=== PATIENT | male | born 1960 | race Caucasian/White ===

== ENCOUNTER 2019-12-01 19:35 | Inpatient (IN) ==
[2019-12-01] MEDS ORDERED: ONDANSETRON 4 MG/2 ML VIAL IV STA (19:58)
[2019-12-01] MEDS ORDERED: SODIUM CHLORIDE 0.9% 1,000 ML IV STA ×2 (19:58→22:11)
[2019-12-01] MEDS ORDERED: ONDANSETRON 4 MG/2 ML VIAL ONE (20:01)
[2019-12-01 21:10] LABS: Basophils # 0.1 10*3/uL (0.0-0.2); Basophils % 0.5 % (0.0-0.8); Eosinophils # 0.1 10*3/uL (0.0-0.87); Eosinophils % 0.4 % (0.00-10.9); Hematocrit 38.2 VOL% (42.0-52.0); Immature Granulocytes % 1.7 %; Immature Granulocytes Absolute 0.44 #; Lymphocytes # 4.3 10*3/uL (1.4-4.0); Lymphocytes % 16.5 % (21.2-54.2); Mean Corpuscular HGB Conc 31.4 GM/DL (32-36); Mean Corpuscular Volume 97.7 FL (87-102); Mean Platelet Volume 9.2 FL (9.6-12.0); Monocytes % 5.3 % (1.7-12.7); Neutrophils % 75.6 % (38.7-73.9); Platelet Count 364 T/CUMM (130-400); Red Blood Count 3.91 MC/CUMM (3.8-5.5); Red Cell Distribution Width 17.8 % (9.3-17.3); White Blood Count 25.9 T/CUMM (4-12)
[2019-12-01 21:30] LABS: Alanine Aminotransferase 19 U/L (16-61); Albumin 2.5 G/DL (3.4-5.0); Alkaline Phosphatase 97 U/L (45-117); Aspartate Amino Transferase 14 U/L (0-37); Blood Urea Nitrogen 23 MG/DL (7-18); Calcium 8.9 MG/DL (8.5-10.1); Estimated Glom Filtration Rate 71 ML/MIN; Glucose 98 MG/DL (74-106); Osmolality,Calculated 278.7 MOS/KG (273-304); Total Protein 7.5 G/DL (6.4-8.3)
[2019-12-01 21:46] LABS: Band Neutrophils 1 % (0-10); Eosinophils 1 % (0-10); Lymphocytes 20 % (20-55); Myelocytes 1 %; Segmented Neutrophils 70 % (50-85); Total Cells Counted 100
[2019-12-01 21:47] LABS: Macrocytosis 1+
[2019-12-01 21:48] LABS: Hypochromasia 1+; Platelet Estimate Normal; Toxic Granulation 1+
[2019-12-01] MEDS ORDERED: PIPERACILLIN/TAZOBACTAM 3,375 MG in SODIUM CHLORIDE 0.9% 100 ML IV STA (21:48)
[2019-12-01 21:49] LABS: Polychromasia Few; Reactive Lymphocytes 1+
[2019-12-01 22:44] LABS: Amorphous Crystals,Urine Occasional /HPF (Few); Bacteria,Urine Occasional /HPF (Few); Bilirubin,Urine Negative (Negative); Blood, Urine Negative (Negative); Glucose,Urine (UA) Negative (Negative); Hyaline Casts,Urine 28 /LPF (0-3); Ketones,Urine Negative (Negative); Mucus,Urine Occasional /LPF (Occasional); Nitrite,Urine Negative (Negative); Protein,Urine 30 MG/DL; RBC,Urine 5 /HPF (0-4); Squamous Epithelial Cell,Urine Occasional /HPF (0-10); Urine Appearance CLOUDY (Clear); Urine Color Amber (Yellow); Urine Specific Gravity 1.019 (1.001-1.035); Urine Urobilinogen < 2.0 EU/DL (0.2-1.0); WBC,Urine 28 /HPF (0-6)
[2019-12-01] MEDS ORDERED: VANCOMYCIN INJ 1,000 MG in SODIUM CHLORIDE 0.9% 250 ML IV STA (23:57)
[2019-12-02] MEDS ORDERED: VANCOMYCIN INJ 1,000 MG in SODIUM CHLORIDE 0.9% 250 ML IV STA (00:04)
[2019-12-02] MEDS ORDERED: GLUCAGON 1 MG VIAL IM PRN (00:20)
[2019-12-02] MEDS ORDERED: ONDANSETRON 4 MG/2 ML VIAL IV PRN (00:20)
[2019-12-02] MEDS ORDERED: DEXTROSE 50% 25 GM/50 ML VIAL IV PRN (00:20)
[2019-12-02] MEDS: ALBUTEROL/IPRATROPIUM 3 ML NEB RESP TX SCH ×4 (01:02→19:11)
[2019-12-02] MEDS: SODIUM CHLORIDE 0.9% 1,000 ML IV SCH ×2 (03:04→10:18)
[2019-12-02] MEDS ORDERED: SODIUM CHLORIDE 0.9% 1,000 ML IV ONE (03:09)
[2019-12-02 04:18] LABS: Basophils # 0.1 10*3/uL (0.0-0.2); Basophils % 0.3 % (0.0-0.8); Eosinophils # 0.1 10*3/uL (0.0-0.87); Eosinophils % 0.3 % (0.00-10.9); Hematocrit 30.6 VOL% (42.0-52.0); Hemoglobin 9.7 GM/DL (14.0-18.0); Immature Granulocytes % 1.5 %; Immature Granulocytes Absolute 0.34 #; Lymphocytes # 3.7 10*3/uL (1.4-4.0); Mean Corpuscular HGB Conc 31.7 GM/DL (32-36); Mean Corpuscular Volume 96.8 FL (87-102); Mean Platelet Volume 8.8 FL (9.6-12.0); Monocytes % 6.8 % (1.7-12.7); Neutrophils % 75.1 % (38.7-73.9); Platelet Count 283 T/CUMM (130-400); Red Blood Count 3.16 MC/CUMM (3.8-5.5); Red Cell Distribution Width 17.6 % (9.3-17.3); White Blood Count 23.1 T/CUMM (4-12)
[2019-12-02 04:40] LABS: Osmolality,Calculated 286.1 MOS/KG (273-304)
[2019-12-02 04:58] LABS: Band Neutrophils 1 % (0-10); Lymphocytes 11 % (20-55); Segmented Neutrophils 84 % (50-85); Total Cells Counted 100
[2019-12-02 04:59] LABS: Platelet Estimate Normal
[2019-12-02 05:15] LABS: Spherocytes Few
[2019-12-02 05:16] LABS: Polychromasia Slight
[2019-12-02] MEDS: CEFEPIME 2,000 MG in SODIUM CHLORIDE 0.9% 100 ML IV SCH ×3 (06:25→21:44)
[2019-12-02] MEDS ORDERED: ALBUMIN 5% 25 GM in PREMIX 1 EACH IV ONE (06:26)
[2019-12-02 06:57] LABS: Amorphous Crystals,Urine Occasional /HPF (Few); Bacteria,Urine Occasional /HPF (Few); Bilirubin,Urine Negative (Negative); Blood, Urine Negative (Negative); Glucose,Urine (UA) Negative (Negative); Hyaline Casts,Urine 3 /LPF (0-3); Ketones,Urine Negative (Negative); Nitrite,Urine Negative (Negative); Protein,Urine 30 MG/DL; RBC,Urine 2 /HPF (0-4); Squamous Epithelial Cell,Urine Occasional /HPF (0-10); Urine Appearance CLOUDY (Clear); Urine Color Yellow (Yellow); Urine Specific Gravity 1.016 (1.001-1.035); Urine Urobilinogen < 2.0 EU/DL (0.2-1.0); WBC,Urine 1 /HPF (0-6)
[2019-12-02] MEDS: ENOXAPARIN 40 MG/0.4 ML SYRINGE SUBCUT SCH (08:26)
[2019-12-02] MEDS: PANTOPRAZOLE 40 MG VIAL IV SCH (08:27)
[2019-12-02] MEDS: NOREPINEPHRINE 8 MG in SODIUM CHLORIDE 0.9% 242 ML IV SCH (09:42)
[2019-12-02] MEDS: LACTATED RINGERS 1,000 ML IV SCH ×2 (10:00→18:20)
[2019-12-02] MEDS: HYDROCORTISONE 100 MG VIAL IV SCH ×3 (10:00→21:44)
[2019-12-02] MEDS: METOCLOPRAMIDE 10 MG/10 ML UDCUP PEG SCH ×2 (13:11→19:34)
[2019-12-02] MEDS: MENTHOL/ZINC OXIDE OINT 71 GM JAR TOP SCH ×2 (15:16→21:44)
[2019-12-02] MEDS: VANCOMYCIN INJ 1,250 MG in SODIUM CHLORIDE 0.9% 250 ML IV SCH (16:20)
[2019-12-03] MEDS: METOCLOPRAMIDE 10 MG/10 ML UDCUP PEG SCH ×5 (00:18→23:43)
[2019-12-03] MEDS: ALBUTEROL/IPRATROPIUM 3 ML NEB RESP TX SCH ×4 (01:42→19:50)
[2019-12-03] MEDS: VANCOMYCIN INJ 1,250 MG in SODIUM CHLORIDE 0.9% 250 ML IV SCH (02:49)
[2019-12-03] MEDS: LACTATED RINGERS 1,000 ML IV SCH ×3 (02:49→18:25)
[2019-12-03] MEDS: HYDROCORTISONE 100 MG VIAL IV SCH ×4 (04:15→21:58)
[2019-12-03 05:50] LABS: Basophils % 0.2 % (0.0-0.8); Hematocrit 28.9 VOL% (42.0-52.0); Hemoglobin 9.1 GM/DL (14.0-18.0); Immature Granulocytes % 3.2 %; Immature Granulocytes Absolute 0.34 #; Lymphocytes # 1.2 10*3/uL (1.4-4.0); Lymphocytes % 10.9 % (21.2-54.2); Mean Corpuscular HGB Conc 31.5 GM/DL (32-36); Mean Corpuscular Volume 97.3 FL (87-102); Mean Platelet Volume 9.3 FL (9.6-12.0); Monocytes % 3.7 % (1.7-12.7); Platelet Count 271 T/CUMM (130-400); Red Blood Count 2.97 MC/CUMM (3.8-5.5); Red Cell Distribution Width 17.4 % (9.3-17.3); White Blood Count 10.7 T/CUMM (4-12)
[2019-12-03 06:14] LABS: Calcium 8.2 MG/DL (8.5-10.1); Osmolality,Calculated 295.7 MOS/KG (273-304)
[2019-12-03] MEDS: CEFEPIME 2,000 MG in SODIUM CHLORIDE 0.9% 100 ML IV SCH ×3 (06:28→21:59)
[2019-12-03] MEDS: PANTOPRAZOLE 40 MG VIAL IV SCH (08:42)
[2019-12-03] MEDS: ENOXAPARIN 40 MG/0.4 ML SYRINGE SUBCUT SCH (08:42)
[2019-12-03] MEDS: MENTHOL/ZINC OXIDE OINT 71 GM JAR TOP SCH ×2 (08:50→21:59)
[2019-12-03] MEDS: MAGNESIUM SULF RIDER 4 GM in PREMIX 1 EACH IV SCH ×3 (09:38→18:59)
[2019-12-03] MEDS: NOREPINEPHRINE 8 MG in SODIUM CHLORIDE 0.9% 242 ML IV SCH (09:56)
[2019-12-03] MEDS: traMADol 50 MG TABLET PO PRN (19:10)
[2019-12-04] MEDS: ALBUTEROL/IPRATROPIUM 3 ML NEB RESP TX SCH ×4 (00:02→19:50)
[2019-12-04] MEDS: traMADol 50 MG TABLET PO PRN ×3 (00:45→23:28)
[2019-12-04] MEDS: LACTATED RINGERS 1,000 ML IV SCH ×3 (04:58→18:40)
[2019-12-04] MEDS: METOCLOPRAMIDE 10 MG/10 ML UDCUP PEG SCH ×3 (05:06→18:41)
[2019-12-04] MEDS: CEFEPIME 2,000 MG in SODIUM CHLORIDE 0.9% 100 ML IV SCH ×3 (05:06→21:06)
[2019-12-04 05:41] LABS: Basophils # 0.1 10*3/uL (0.0-0.2); Basophils % 0.4 % (0.0-0.8); Eosinophils % 0.1 % (0.00-10.9); Hematocrit 25.5 VOL% (42.0-52.0); Hemoglobin 8.2 GM/DL (14.0-18.0); Immature Granulocytes % 5.4 %; Immature Granulocytes Absolute 0.61 #; Lymphocytes # 1.5 10*3/uL (1.4-4.0); Lymphocytes % 13.7 % (21.2-54.2); Mean Corpuscular HGB Conc 32.2 GM/DL (32-36); Mean Corpuscular Volume 96.2 FL (87-102); Mean Platelet Volume 9.2 FL (9.6-12.0); Monocytes % 7.2 % (1.7-12.7); Neutrophils % 73.2 % (38.7-73.9); Platelet Count 275 T/CUMM (130-400); Red Blood Count 2.65 MC/CUMM (3.8-5.5); Red Cell Distribution Width 17.1 % (9.3-17.3); White Blood Count 11.3 T/CUMM (4-12)
[2019-12-04 06:00] LABS: Calcium 8.3 MG/DL (8.5-10.1); Osmolality,Calculated 283.5 MOS/KG (273-304)
[2019-12-04 06:10] LABS: Band Neutrophils 2 % (0-10); Hypochromasia 1+; Lymphocytes 10 % (20-55); Microcytosis Slight; Platelet Estimate Adequate; Segmented Neutrophils 80 % (50-85); Total Cells Counted 100
[2019-12-04] MEDS: MENTHOL/ZINC OXIDE OINT 71 GM JAR TOP SCH ×2 (08:32→23:28)
[2019-12-04] MEDS: ENOXAPARIN 40 MG/0.4 ML SYRINGE SUBCUT SCH (08:32)
[2019-12-04] MEDS: PANTOPRAZOLE 40 MG VIAL IV SCH (08:36)
[2019-12-04] MEDS: HYDROCORTISONE 100 MG VIAL IV SCH ×2 (08:37→20:40)
[2019-12-04] MEDS: POTASSIUM CHLORIDE 20 MEQ/15 ML UDCUP PER TUBE SCH ×3 (11:00→18:20)
[2019-12-04] MEDS: NOREPINEPHRINE 8 MG in SODIUM CHLORIDE 0.9% 242 ML IV SCH (14:10)
[2019-12-05] MEDS: ALBUTEROL/IPRATROPIUM 3 ML NEB RESP TX SCH ×4 (00:15→19:30)
[2019-12-05] MEDS: LACTATED RINGERS 1,000 ML IV SCH ×3 (00:31→13:50)
[2019-12-05] MEDS: METOCLOPRAMIDE 10 MG/10 ML UDCUP PEG SCH ×5 (01:10→23:09)
[2019-12-05 05:36] LABS: Basophils % 0.4 % (0.0-0.8); Eosinophils # 0.1 10*3/uL (0.0-0.87); Eosinophils % 0.7 % (0.00-10.9); Hematocrit 26.1 VOL% (42.0-52.0); Hemoglobin 8.5 GM/DL (14.0-18.0); Immature Granulocytes % 2.5 %; Immature Granulocytes Absolute 0.26 #; Lymphocytes # 2.8 10*3/uL (1.4-4.0); Lymphocytes % 26.8 % (21.2-54.2); Mean Corpuscular HGB Conc 32.6 GM/DL (32-36); Mean Corpuscular Volume 93.2 FL (87-102); Mean Platelet Volume 9.3 FL (9.6-12.0); Monocytes % 10.8 % (1.7-12.7); Neutrophils % 58.8 % (38.7-73.9); Platelet Count 308 T/CUMM (130-400); Red Cell Distribution Width 16.6 % (9.3-17.3); White Blood Count 10.5 T/CUMM (4-12)
[2019-12-05 05:49] LABS: Calcium 7.9 MG/DL (8.5-10.1); Osmolality,Calculated 281.3 MOS/KG (273-304)
[2019-12-05] MEDS: traMADol 50 MG TABLET PO PRN ×2 (06:13→21:11)
[2019-12-05] MEDS: CEFEPIME 2,000 MG in SODIUM CHLORIDE 0.9% 100 ML IV SCH ×2 (06:16→15:01)
[2019-12-05] MEDS ORDERED: hydrALAZINE 25 MG TABLET PEG PRN (07:31)
[2019-12-05] MEDS ORDERED: POTASSIUM CHLORIDE 20 MEQ/15 ML UDCUP PO ONE ×2 (07:32→08:00)
[2019-12-05] MEDS ORDERED: MAGNESIUM SULF RIDER 2 GM in PREMIX 1 EACH IV ONE (07:33)
[2019-12-05] MEDS: SIMETHICONE CHEW 80 MG TABLET PO SCH ×3 (08:19→21:11)
[2019-12-05] MEDS: PANTOPRAZOLE 40 MG TABLET PO SCH (08:27)
[2019-12-05] MEDS: MENTHOL/ZINC OXIDE OINT 71 GM JAR TOP SCH ×2 (08:28→21:13)
[2019-12-05] MEDS: predniSONE 10 MG TABLET PEG SCH ×2 (08:28→21:12)
[2019-12-05] MEDS: ENOXAPARIN 40 MG/0.4 ML SYRINGE SUBCUT SCH (08:28)
[2019-12-05] MEDS: METOPROLOL TARTRATE 50 MG TABLET PEG SCH ×2 (08:28→21:12)
[2019-12-05] MEDS: SERTRALINE 50 MG TABLET PEG SCH (08:29)
[2019-12-05] MEDS: NOREPINEPHRINE 8 MG in SODIUM CHLORIDE 0.9% 242 ML IV SCH (08:30)
[2019-12-05] MEDS ORDERED: predniSONE 5 MG TABLET PEG SCH (09:00)
[2019-12-05] MEDS: INSULIN LISPRO 100 UNIT/ML SUBCUT SCH ×2 (13:49→17:55)
[2019-12-05] MEDS: POTASSIUM CHLORIDE RIDER 10 MEQ in PREMIX 1 EACH IV PRN ×4 (14:54→22:55)
[2019-12-05] MEDS: CEFDINIR 300 MG CAPSULE PO SCH (21:11)
[2019-12-06] MEDS: ALBUTEROL/IPRATROPIUM 3 ML NEB RESP TX SCH ×4 (00:58→19:21)
[2019-12-06 02:05] LABS: Basophils # 0.1 10*3/uL (0.0-0.2); Basophils % 0.5 % (0.0-0.8); Eosinophils # 0.2 10*3/uL (0.0-0.87); Eosinophils % 1.6 % (0.00-10.9); Hematocrit 30.5 VOL% (42.0-52.0); Immature Granulocytes Absolute 0.25 #; Lymphocytes # 2.9 10*3/uL (1.4-4.0); Lymphocytes % 23.3 % (21.2-54.2); Mean Corpuscular HGB Conc 32.8 GM/DL (32-36); Mean Corpuscular Volume 92.1 FL (87-102); Mean Platelet Volume 9.1 FL (9.6-12.0); Monocytes % 8.9 % (1.7-12.7); Neutrophils % 63.7 % (38.7-73.9); Platelet Count 291 T/CUMM (130-400); Red Blood Count 3.31 MC/CUMM (3.8-5.5); Red Cell Distribution Width 16.8 % (9.3-17.3); White Blood Count 12.5 T/CUMM (4-12)
[2019-12-06 02:23] LABS: Calcium 8.2 MG/DL (8.5-10.1)
[2019-12-06] MEDS: INSULIN LISPRO 100 UNIT/ML SUBCUT SCH ×4 (02:40→17:55)
[2019-12-06] MEDS: POTASSIUM CHLORIDE RIDER 10 MEQ in PREMIX 1 EACH IV PRN ×2 (05:07→06:40)
[2019-12-06] MEDS: METOCLOPRAMIDE 10 MG/10 ML UDCUP PEG SCH ×3 (05:58→17:55)
[2019-12-06] MEDS ORDERED: TUBERCULIN SKIN TEST 0.1 ML SYRINGE INTRADERM ONE (08:51)
[2019-12-06] MEDS: MENTHOL/ZINC OXIDE OINT 71 GM JAR TOP SCH ×2 (10:07→20:49)
[2019-12-06] MEDS: METOPROLOL TARTRATE 50 MG TABLET PEG SCH ×2 (10:07→20:55)
[2019-12-06] MEDS: CEFDINIR 300 MG CAPSULE PO SCH ×2 (10:07→20:50)
[2019-12-06] MEDS: PANTOPRAZOLE 40 MG TABLET PO SCH (10:07)
[2019-12-06] MEDS: ENOXAPARIN 40 MG/0.4 ML SYRINGE SUBCUT SCH (10:07)
[2019-12-06] MEDS: SERTRALINE 50 MG TABLET PEG SCH (10:07)
[2019-12-06] MEDS: SIMETHICONE CHEW 80 MG TABLET PO SCH ×3 (10:07→20:50)
[2019-12-06] MEDS: predniSONE 10 MG TABLET PEG SCH ×2 (10:07→20:50)
[2019-12-07] MEDS: INSULIN LISPRO 100 UNIT/ML SUBCUT SCH ×4 (00:02→17:53)
[2019-12-07] MEDS: METOCLOPRAMIDE 10 MG/10 ML UDCUP PEG SCH ×4 (00:17→17:43)
[2019-12-07] MEDS: ALBUTEROL/IPRATROPIUM 3 ML NEB RESP TX SCH ×4 (00:20→19:44)
[2019-12-07] MEDS: ENOXAPARIN 40 MG/0.4 ML SYRINGE SUBCUT SCH (10:23)
[2019-12-07] MEDS: PANTOPRAZOLE 40 MG TABLET PO SCH (10:24)
[2019-12-07] MEDS: CEFDINIR 300 MG CAPSULE PO SCH ×2 (10:24→20:54)
[2019-12-07] MEDS: SIMETHICONE CHEW 80 MG TABLET PO SCH ×3 (10:24→20:54)
[2019-12-07] MEDS: SERTRALINE 50 MG TABLET PEG SCH (10:24)
[2019-12-07] MEDS: predniSONE 10 MG TABLET PEG SCH ×2 (10:24→20:54)
[2019-12-07] MEDS: METOPROLOL TARTRATE 50 MG TABLET PEG SCH ×2 (10:24→20:54)
[2019-12-07] MEDS: MENTHOL/ZINC OXIDE OINT 71 GM JAR TOP SCH ×2 (10:25→20:54)
[2019-12-07] MEDS ORDERED: ALUM/MAG/SIMETH/LIDO VISC 1:1 30 ML BOTTLE PO ONE (11:42)
[2019-12-07] MEDS ORDERED: MORPHINE 4 MG/1 ML VIAL IV ONE (11:43)
[2019-12-07 13:17] LABS: Troponin I < 0.015 NG/ML (0.00-0.045)
[2019-12-08] MEDS: METOCLOPRAMIDE 10 MG/10 ML UDCUP PEG SCH ×4 (00:19→17:48)
[2019-12-08] MEDS: INSULIN LISPRO 100 UNIT/ML SUBCUT SCH ×4 (00:19→17:48)
[2019-12-08] MEDS: ALBUTEROL/IPRATROPIUM 3 ML NEB RESP TX SCH ×4 (00:43→20:20)
[2019-12-08] MEDS: METOPROLOL TARTRATE 50 MG TABLET PEG SCH ×2 (08:40→20:49)
[2019-12-08] MEDS: predniSONE 10 MG TABLET PEG SCH ×2 (08:40→20:49)
[2019-12-08] MEDS: SERTRALINE 50 MG TABLET PEG SCH (08:40)
[2019-12-08] MEDS: ENOXAPARIN 40 MG/0.4 ML SYRINGE SUBCUT SCH (08:40)
[2019-12-08] MEDS: CEFDINIR 300 MG CAPSULE PO SCH (08:40)
[2019-12-08] MEDS: MENTHOL/ZINC OXIDE OINT 71 GM JAR TOP SCH ×2 (08:40→20:49)
[2019-12-08] MEDS: PANTOPRAZOLE 40 MG TABLET PO SCH (08:40)
[2019-12-08] MEDS: SIMETHICONE CHEW 80 MG TABLET PO SCH ×3 (08:40→20:49)
[2019-12-08] MEDS: traMADol 50 MG TABLET PO PRN (08:51)
[2019-12-09] MEDS: INSULIN LISPRO 100 UNIT/ML SUBCUT SCH ×4 (00:01→18:43)
[2019-12-09] MEDS: METOCLOPRAMIDE 10 MG/10 ML UDCUP PEG SCH ×4 (00:01→18:20)
[2019-12-09] MEDS: ALBUTEROL/IPRATROPIUM 3 ML NEB RESP TX SCH ×4 (01:16→19:43)
[2019-12-09 06:12] LABS: Basophils # 0.1 10*3/uL (0.0-0.2); Basophils % 0.5 % (0.0-0.8); Eosinophils # 0.1 10*3/uL (0.0-0.87); Eosinophils % 0.6 % (0.00-10.9); Hematocrit 33.4 VOL% (42.0-52.0); Hemoglobin 10.9 GM/DL (14.0-18.0); Immature Granulocytes % 4.1 %; Immature Granulocytes Absolute 0.56 #; Lymphocytes # 2.9 10*3/uL (1.4-4.0); Lymphocytes % 21.5 % (21.2-54.2); Mean Corpuscular HGB Conc 32.6 GM/DL (32-36); Mean Corpuscular Volume 94.1 FL (87-102); Mean Platelet Volume 9.2 FL (9.6-12.0); Neutrophils % 65.3 % (38.7-73.9); Platelet Count 363 T/CUMM (130-400); Red Blood Count 3.55 MC/CUMM (3.8-5.5); Red Cell Distribution Width 16.2 % (9.3-17.3); White Blood Count 13.5 T/CUMM (4-12)
[2019-12-09 06:34] LABS: Eosinophils 1 % (0-10); Hypochromasia 1+; Lymphocytes 21 % (20-55); Microcytosis Slight; Platelet Estimate Adequate; Segmented Neutrophils 71 % (50-85); Total Cells Counted 100
[2019-12-09 06:47] LABS: Calcium 8.6 MG/DL (8.5-10.1); Osmolality,Calculated 271.1 MOS/KG (273-304)
[2019-12-09] MEDS: MENTHOL/ZINC OXIDE OINT 71 GM JAR TOP SCH ×2 (10:39→21:07)
[2019-12-09] MEDS: ENOXAPARIN 40 MG/0.4 ML SYRINGE SUBCUT SCH (10:39)
[2019-12-09] MEDS: PANTOPRAZOLE 40 MG TABLET PO SCH (10:40)
[2019-12-09] MEDS: SERTRALINE 50 MG TABLET PEG SCH (10:40)
[2019-12-09] MEDS: predniSONE 10 MG TABLET PEG SCH ×2 (10:40→21:07)
[2019-12-09] MEDS: METOPROLOL TARTRATE 50 MG TABLET PEG SCH ×2 (10:40→21:07)
[2019-12-09] MEDS: SIMETHICONE CHEW 80 MG TABLET PO SCH ×3 (10:40→21:07)
[2019-12-09] MEDS: traMADol 50 MG TABLET PO PRN (18:20)
[2019-12-10] MEDS: ALBUTEROL/IPRATROPIUM 3 ML NEB RESP TX SCH ×4 (01:05→19:49)
[2019-12-10] MEDS: METOCLOPRAMIDE 10 MG/10 ML UDCUP PEG SCH ×4 (01:30→18:29)
[2019-12-10] MEDS: INSULIN LISPRO 100 UNIT/ML SUBCUT SCH ×4 (01:30→18:19)
[2019-12-10 06:26] LABS: Basophils # 0.1 10*3/uL (0.0-0.2); Basophils % 0.7 % (0.0-0.8); Eosinophils # 0.2 10*3/uL (0.0-0.87); Eosinophils % 1.3 % (0.00-10.9); Hematocrit 35.9 VOL% (42.0-52.0); Hemoglobin 11.9 GM/DL (14.0-18.0); Immature Granulocytes % 3.8 %; Immature Granulocytes Absolute 0.56 #; Lymphocytes % 33.9 % (21.2-54.2); Mean Corpuscular HGB Conc 33.1 GM/DL (32-36); Mean Platelet Volume 8.9 FL (9.6-12.0); Monocytes % 9.2 % (1.7-12.7); Neutrophils % 51.1 % (38.7-73.9); Platelet Count 409 T/CUMM (130-400); Red Blood Count 3.86 MC/CUMM (3.8-5.5); Red Cell Distribution Width 16.2 % (9.3-17.3); White Blood Count 14.9 T/CUMM (4-12)
[2019-12-10 06:40] LABS: Calcium 9.1 MG/DL (8.5-10.1); Osmolality,Calculated 266.4 MOS/KG (273-304)
[2019-12-10 06:49] LABS: Band Neutrophils 1 % (0-10); Eosinophils 1 % (0-10); Lymphocytes 31 % (20-55); Metamyelocytes 2 %; Platelet Estimate Adequate; Segmented Neutrophils 56 % (50-85); Total Cells Counted 100
[2019-12-10 06:50] LABS: Hypochromasia 2+
[2019-12-10] MEDS: PANTOPRAZOLE 40 MG TABLET PO SCH (11:37)
[2019-12-10] MEDS: SIMETHICONE CHEW 80 MG TABLET PO SCH ×3 (11:37→21:07)
[2019-12-10] MEDS: SERTRALINE 50 MG TABLET PEG SCH (11:37)
[2019-12-10] MEDS: ENOXAPARIN 40 MG/0.4 ML SYRINGE SUBCUT SCH (11:37)
[2019-12-10] MEDS: MENTHOL/ZINC OXIDE OINT 71 GM JAR TOP SCH ×2 (11:38→21:07)
[2019-12-10] MEDS: predniSONE 10 MG TABLET PEG SCH ×2 (11:38→21:07)
[2019-12-10] MEDS: METOPROLOL TARTRATE 50 MG TABLET PEG SCH ×2 (11:38→21:06)
[2019-12-10] MEDS: MELATONIN 3 MG TABLET PO SCH (21:06)
[2019-12-11] MEDS: METOCLOPRAMIDE 10 MG/10 ML UDCUP PEG SCH ×4 (00:27→18:47)
[2019-12-11] MEDS: ALBUTEROL/IPRATROPIUM 3 ML NEB RESP TX SCH ×4 (00:50→19:40)
[2019-12-11] MEDS: INSULIN LISPRO 100 UNIT/ML SUBCUT SCH ×4 (01:25→18:47)
[2019-12-11 08:06] LABS: Basophils # 0.1 10*3/uL (0.0-0.2); Basophils % 0.3 % (0.0-0.8); Eosinophils # 0.1 10*3/uL (0.0-0.87); Eosinophils % 0.1 % (0.00-10.9); Hematocrit 34.1 VOL% (42.0-52.0); Hemoglobin 11.1 GM/DL (14.0-18.0); Immature Granulocytes % 2.1 %; Immature Granulocytes Absolute 0.75 #; Lymphocytes # 4.6 10*3/uL (1.4-4.0); Lymphocytes % 13.1 % (21.2-54.2); Mean Corpuscular HGB Conc 32.6 GM/DL (32-36); Mean Platelet Volume 9.2 FL (9.6-12.0); Monocytes % 5.1 % (1.7-12.7); Neutrophils % 79.3 % (38.7-73.9); Platelet Count 355 T/CUMM (130-400); Red Blood Count 3.59 MC/CUMM (3.8-5.5); Red Cell Distribution Width 16.4 % (9.3-17.3)
[2019-12-11 08:07] LABS: White Blood Count 35.5 T/CUMM (4-12)
[2019-12-11 08:28] LABS: Band Neutrophils 1 % (0-10); Eosinophils 1 % (0-10); Lymphocytes 16 % (20-55); Metamyelocytes 1 %; Platelet Estimate Normal; Segmented Neutrophils 73 % (50-85); Total Cells Counted 100
[2019-12-11 08:29] LABS: Anisocytosis 1+; Macrocytosis Slight
[2019-12-11] MEDS: SERTRALINE 50 MG TABLET PEG SCH (09:10)
[2019-12-11] MEDS: SIMETHICONE CHEW 80 MG TABLET PO SCH ×3 (09:10→22:31)
[2019-12-11] MEDS: MENTHOL/ZINC OXIDE OINT 71 GM JAR TOP SCH ×2 (09:10→22:32)
[2019-12-11] MEDS: METOPROLOL TARTRATE 50 MG TABLET PEG SCH ×2 (09:10→22:32)
[2019-12-11] MEDS: PANTOPRAZOLE 40 MG TABLET PO SCH (09:10)
[2019-12-11] MEDS: ENOXAPARIN 40 MG/0.4 ML SYRINGE SUBCUT SCH (09:10)
[2019-12-11] MEDS: predniSONE 10 MG TABLET PEG SCH ×2 (09:12→22:31)
[2019-12-11 19:50] LABS: Bacteria,Urine Occasional /HPF (Few); Bilirubin,Urine Negative (Negative); Blood, Urine Negative (Negative); Glucose,Urine (UA) Negative (Negative); Hyaline Casts,Urine 7 /LPF (0-3); Ketones,Urine Negative (Negative); Mucus,Urine Occasional /LPF (Occasional); Nitrite,Urine Negative (Negative); Protein,Urine 30 MG/DL; RBC,Urine 2 /HPF (0-4); Squamous Epithelial Cell,Urine Occasional /HPF (0-10); Urine Appearance Slightly Hazy (Clear); Urine Color Yellow (Yellow); Urine Specific Gravity 1.015 (1.001-1.035); Urine Urobilinogen < 2.0 EU/DL (0.2-1.0); WBC,Urine 6 /HPF (0-6)
[2019-12-11] MEDS: MELATONIN 3 MG TABLET PO SCH (22:31)
[2019-12-12] MEDS: ALBUTEROL/IPRATROPIUM 3 ML NEB RESP TX SCH ×4 (01:38→20:12)
[2019-12-12] MEDS: INSULIN LISPRO 100 UNIT/ML SUBCUT SCH ×4 (01:41→17:24)
[2019-12-12] MEDS: METOCLOPRAMIDE 10 MG/10 ML UDCUP PEG SCH ×4 (01:46→17:24)
[2019-12-12 05:45] LABS: Basophils # 0.1 10*3/uL (0.0-0.2); Basophils % 0.3 % (0.0-0.8); Eosinophils % 0.2 % (0.00-10.9); Hematocrit 31.9 VOL% (42.0-52.0); Hemoglobin 10.2 GM/DL (14.0-18.0); Immature Granulocytes % 1.7 %; Immature Granulocytes Absolute 0.44 #; Lymphocytes # 1.8 10*3/uL (1.4-4.0); Lymphocytes % 6.7 % (21.2-54.2); Mean Corpuscular Volume 95.5 FL (87-102); Mean Platelet Volume 9.3 FL (9.6-12.0); Monocytes % 4.3 % (1.7-12.7); Neutrophils % 86.8 % (38.7-73.9); Platelet Count 350 T/CUMM (130-400); Red Blood Count 3.34 MC/CUMM (3.8-5.5); Red Cell Distribution Width 16.1 % (9.3-17.3); White Blood Count 26.1 T/CUMM (4-12)
[2019-12-12 06:08] LABS: Anisocytosis 1+; Band Neutrophils 2 % (0-10); Burr Cells Few; Eosinophils 1 % (0-10); Lymphocytes 9 % (20-55); Platelet Estimate Normal; Poikilocytosis Slight; Segmented Neutrophils 83 % (50-85); Total Cells Counted 100
[2019-12-12 06:14] LABS: Calcium 8.5 MG/DL (8.5-10.1); Osmolality,Calculated 274.5 MOS/KG (273-304)
[2019-12-12] MEDS: METOPROLOL TARTRATE 50 MG TABLET PEG SCH ×2 (09:46→20:42)
[2019-12-12] MEDS: MENTHOL/ZINC OXIDE OINT 71 GM JAR TOP SCH ×2 (09:46→20:43)
[2019-12-12] MEDS: predniSONE 10 MG TABLET PEG SCH ×2 (09:47→20:43)
[2019-12-12] MEDS: SERTRALINE 50 MG TABLET PEG SCH (09:47)
[2019-12-12] MEDS: ENOXAPARIN 40 MG/0.4 ML SYRINGE SUBCUT SCH (09:47)
[2019-12-12] MEDS: SIMETHICONE CHEW 80 MG TABLET PO SCH ×3 (09:47→20:43)
[2019-12-12] MEDS: PANTOPRAZOLE 40 MG TABLET PO SCH (09:47)
[2019-12-12] MEDS: MELATONIN 3 MG TABLET PO SCH (20:42)
[2019-12-13] MEDS: INSULIN LISPRO 100 UNIT/ML SUBCUT SCH ×3 (00:25→12:18)
[2019-12-13] MEDS: METOCLOPRAMIDE 10 MG/10 ML UDCUP PEG SCH ×3 (00:26→12:19)
[2019-12-13] MEDS: ALBUTEROL/IPRATROPIUM 3 ML NEB RESP TX SCH ×3 (02:51→13:59)
[2019-12-13 06:07] LABS: Basophils # 0.1 10*3/uL (0.0-0.2); Basophils % 0.4 % (0.0-0.8); Eosinophils # 0.1 10*3/uL (0.0-0.87); Eosinophils % 0.7 % (0.00-10.9); Hematocrit 32.7 VOL% (42.0-52.0); Hemoglobin 10.3 GM/DL (14.0-18.0); Immature Granulocytes % 1.2 %; Immature Granulocytes Absolute 0.21 #; Lymphocytes # 2.5 10*3/uL (1.4-4.0); Lymphocytes % 13.9 % (21.2-54.2); Mean Corpuscular HGB Conc 31.5 GM/DL (32-36); Mean Corpuscular Volume 97.6 FL (87-102); Mean Platelet Volume 9.2 FL (9.6-12.0); Monocytes % 6.6 % (1.7-12.7); Neutrophils % 77.2 % (38.7-73.9); Platelet Count 347 T/CUMM (130-400); Red Blood Count 3.35 MC/CUMM (3.8-5.5); Red Cell Distribution Width 16.1 % (9.3-17.3); White Blood Count 18.1 T/CUMM (4-12)
[2019-12-13] MEDS: ENOXAPARIN 40 MG/0.4 ML SYRINGE SUBCUT SCH (09:18)
[2019-12-13] MEDS: SIMETHICONE CHEW 80 MG TABLET PO SCH (09:18)
[2019-12-13] MEDS: METOPROLOL TARTRATE 50 MG TABLET PEG SCH (09:18)
[2019-12-13] MEDS: predniSONE 10 MG TABLET PEG SCH (09:18)
[2019-12-13] MEDS: MENTHOL/ZINC OXIDE OINT 71 GM JAR TOP SCH (09:18)
[2019-12-13] MEDS: SERTRALINE 50 MG TABLET PEG SCH (09:18)
[2019-12-13] MEDS: PANTOPRAZOLE 40 MG TABLET PO SCH (09:18)
[2019-12-13 11:43] VITALS: BP 140/56
== END 2019-12-13 15:10 | disposition home or self-care (01) | DRG 871 ==
LOC: EDBD → EDUNIT# → N.ED 19:35 → SUATTDRO 12-02 00:20 → N.EDINP 12-02 00:20 → N.TELEN 12-02 02:58 → N.ICU 12-02 05:49 → N.3E 12-04 13:51
PROVIDERS: ADMIT Internal Medicine; ATTEND Internal Medicine

== ENCOUNTER 2019-12-15 17:01 | Inpatient (IN) ==
[2019-12-15] MEDS ORDERED: LACTATED RINGERS 1,000 ML IV ONE ×2 (18:10→21:13)
[2019-12-15 19:36] LABS: Basophils # 0.1 10*3/uL (0.0-0.2); Basophils % 0.5 % (0.0-0.8); Eosinophils # 0.2 10*3/uL (0.0-0.87); Hematocrit 34.7 VOL% (42.0-52.0); Hemoglobin 11.2 GM/DL (14.0-18.0); Immature Granulocytes % 1.2 %; Immature Granulocytes Absolute 0.26 #; Lymphocytes % 18.1 % (21.2-54.2); Mean Corpuscular HGB Conc 32.3 GM/DL (32-36); Mean Corpuscular Volume 95.6 FL (87-102); Mean Platelet Volume 8.9 FL (9.6-12.0); Monocytes % 7.9 % (1.7-12.7); Neutrophils % 71.3 % (38.7-73.9); Platelet Count 353 T/CUMM (130-400); Red Blood Count 3.63 MC/CUMM (3.8-5.5); White Blood Count 21.9 T/CUMM (4-12)
[2019-12-15 20:09] LABS: Alanine Aminotransferase 22 U/L (16-61); Albumin 2.7 G/DL (3.4-5.0); Alkaline Phosphatase 129 U/L (45-117); Aspartate Amino Transferase 9 U/L (0-37); Bilirubin,Total < 0.39 MG/DL (0.2-1.0); Blood Urea Nitrogen 24 MG/DL (7-18); Calcium 8.3 MG/DL (8.5-10.1); Estimated Glom Filtration Rate 91 ML/MIN; Glucose 136 MG/DL (74-106); Total Protein 7.4 G/DL (6.4-8.3)
[2019-12-15 20:23] LABS: Bilirubin,Urine Negative (Negative); Blood, Urine Negative (Negative); Glucose,Urine (UA) Negative (Negative); Ketones,Urine Negative (Negative); Mucus,Urine Occasional /LPF (Occasional); Nitrite,Urine Negative (Negative); Protein,Urine Negative; RBC,Urine 1 /HPF (0-4); Urine Appearance CLEAR (Clear); Urine Color Yellow (Yellow); Urine Specific Gravity 1.015 (1.001-1.035); Urine Urobilinogen < 2.0 EU/DL (0.2-1.0); WBC,Urine 3 /HPF (0-6)
[2019-12-15 20:28] LABS: Lymphocytes 21 % (20-55); Segmented Neutrophils 74 % (50-85); Total Cells Counted 100
[2019-12-15 20:31] LABS: Anisocytosis 1+
[2019-12-15 20:32] LABS: Burr Cells Few; Macrocytosis Slight; Microcytosis 1+
[2019-12-15 20:33] LABS: Platelet Estimate Adequate
[2019-12-15 20:34] LABS: Acanthocytes Few
[2019-12-15] MEDS ORDERED: PIPERACILLIN/TAZOBACTAM 3,375 MG in SODIUM CHLORIDE 0.9% 100 ML IV STA ×2 (21:12→21:20)
[2019-12-15] MEDS ORDERED: GLUCAGON 1 MG VIAL IM PRN (22:03)
[2019-12-15] MEDS ORDERED: DEXTROSE 50% 25 GM/50 ML VIAL IV PRN (22:03)
[2019-12-15] MEDS ORDERED: ALBUTEROL/IPRATROPIUM 3 ML NEB RESP TX PRN (22:15)
[2019-12-15] MEDS ORDERED: SODIUM CHLORIDE 0.9% 1,000 ML IV SCH (22:30)
[2019-12-16] MEDS ORDERED: VANCOMYCIN INJ 1,500 MG in SODIUM CHLORIDE 0.9% 500 ML IV ONE
[2019-12-16] MEDS: ENOXAPARIN 40 MG/0.4 ML SYRINGE SUBCUT SCH ×2 (00:15→21:03)
[2019-12-16] MEDS: INSULIN LISPRO 100 UNIT/ML SUBCUT SCH ×4 (00:16→18:20)
[2019-12-16] MEDS: PIPERACILLIN/TAZOBACTAM 3,375 MG in SODIUM CHLORIDE 0.9% 100 ML IV SCH ×2 (05:45→16:17)
[2019-12-16 06:20] LABS: Basophils # 0.1 10*3/uL (0.0-0.2); Basophils % 0.4 % (0.0-0.8); Eosinophils # 0.3 10*3/uL (0.0-0.87); Eosinophils % 1.6 % (0.00-10.9); Hematocrit 30.7 VOL% (42.0-52.0); Hemoglobin 9.8 GM/DL (14.0-18.0); Immature Granulocytes % 1.2 %; Lymphocytes # 3.9 10*3/uL (1.4-4.0); Lymphocytes % 22.4 % (21.2-54.2); Mean Corpuscular HGB Conc 31.9 GM/DL (32-36); Mean Corpuscular Volume 93.9 FL (87-102); Mean Platelet Volume 9.3 FL (9.6-12.0); Monocytes % 7.9 % (1.7-12.7); Neutrophils % 66.5 % (38.7-73.9); Platelet Count 337 T/CUMM (130-400); Red Blood Count 3.27 MC/CUMM (3.8-5.5); Red Cell Distribution Width 15.9 % (9.3-17.3); White Blood Count 17.3 T/CUMM (4-12)
[2019-12-16 06:52] LABS: Albumin 2.4 G/DL (3.4-5.0); Bilirubin,Total 1.2 MG/DL (0.2-1.0); Calcium 8.3 MG/DL (8.5-10.1); Osmolality,Calculated 280.3 MOS/KG (273-304); Thyroid Stimulating Hormone 2.23 uIU/ml (0.358-3.74); Total Protein 6.6 G/DL (6.4-8.3)
[2019-12-16] MEDS ORDERED: SODIUM CHLORIDE 0.9% IV ONE (09:00)
[2019-12-16] MEDS ORDERED: MAGNESIUM SULF IV ONE (09:00)
[2019-12-16] MEDS ORDERED: POTASSIUM CHLORIDE IV ONE (09:00)
[2019-12-16] MEDS: SERTRALINE 50 MG TABLET PEG SCH (09:39)
[2019-12-16] MEDS: predniSONE 10 MG TABLET PEG SCH (09:39)
[2019-12-16] MEDS: VANCOMYCIN INJ 1,000 MG in SODIUM CHLORIDE 0.9% 250 ML IV SCH (14:28)
[2019-12-16] MEDS ORDERED: INSULIN GLARGINE 100 UNIT/ML SUBCUT SCH (21:00)
[2019-12-16] MEDS: DESITIN 4OZ/NYSTATIN 15 GRAM MIXTURE PASTE TOP SCH (21:03)
[2019-12-17] MEDS: INSULIN LISPRO 100 UNIT/ML SUBCUT SCH ×4 (01:41→19:07)
[2019-12-17] MEDS: PIPERACILLIN/TAZOBACTAM 3,375 MG in SODIUM CHLORIDE 0.9% 100 ML IV SCH ×2 (01:48→09:02)
[2019-12-17] MEDS: VANCOMYCIN INJ 1,000 MG in SODIUM CHLORIDE 0.9% 250 ML IV SCH (05:59)
[2019-12-17] MEDS: SERTRALINE 50 MG TABLET PEG SCH (09:01)
[2019-12-17] MEDS: predniSONE 10 MG TABLET PEG SCH (09:02)
[2019-12-17] MEDS: DESITIN 4OZ/NYSTATIN 15 GRAM MIXTURE PASTE TOP SCH ×2 (09:03→21:38)
[2019-12-17 09:35] LABS: Calcium 8.8 MG/DL (8.5-10.1); Osmolality,Calculated 277.5 MOS/KG (273-304)
[2019-12-17] MEDS: ENOXAPARIN 40 MG/0.4 ML SYRINGE SUBCUT SCH (21:37)
[2019-12-18] MEDS: INSULIN LISPRO 100 UNIT/ML SUBCUT SCH ×4 (05:50→18:20)
[2019-12-18] MEDS: DESITIN 4OZ/NYSTATIN 15 GRAM MIXTURE PASTE TOP SCH ×2 (08:16→21:43)
[2019-12-18] MEDS: SERTRALINE 50 MG TABLET PEG SCH (08:16)
[2019-12-18] MEDS: predniSONE 10 MG TABLET PEG SCH (08:16)
[2019-12-18] MEDS ORDERED: MAGNESIUM SULF RIDER 4 GM in PREMIX 1 EACH IV ONE (09:00)
[2019-12-18] MEDS ORDERED: TUBERCULIN SKIN TEST 0.1 ML SYRINGE INTRADERM ONE (15:34)
[2019-12-18] MEDS: ENOXAPARIN 40 MG/0.4 ML SYRINGE SUBCUT SCH (21:42)
[2019-12-19] MEDS: INSULIN LISPRO 100 UNIT/ML SUBCUT SCH ×4 (00:50→18:10)
[2019-12-19] MEDS: SERTRALINE 50 MG TABLET PEG SCH (09:12)
[2019-12-19] MEDS: predniSONE 10 MG TABLET PEG SCH (09:12)
[2019-12-19] MEDS: DESITIN 4OZ/NYSTATIN 15 GRAM MIXTURE PASTE TOP SCH ×2 (09:12→22:06)
[2019-12-19] MEDS: ENOXAPARIN 40 MG/0.4 ML SYRINGE SUBCUT SCH (22:06)
[2019-12-20] MEDS: INSULIN LISPRO 100 UNIT/ML SUBCUT SCH ×4 (00:08→17:04)
[2019-12-20] MEDS: SERTRALINE 50 MG TABLET PEG SCH (09:10)
[2019-12-20] MEDS: DESITIN 4OZ/NYSTATIN 15 GRAM MIXTURE PASTE TOP SCH ×2 (09:10→20:43)
[2019-12-20] MEDS: predniSONE 10 MG TABLET PEG SCH (09:10)
[2019-12-20] MEDS: ENOXAPARIN 40 MG/0.4 ML SYRINGE SUBCUT SCH (20:41)
[2019-12-20] MEDS: CALCIUM CARBONATE CHEW 500 MG TABLET PO PRN (22:55)
[2019-12-21] MEDS: INSULIN LISPRO 100 UNIT/ML SUBCUT SCH ×5 (06:19→23:16)
[2019-12-21 07:04] LABS: Albumin 3.1 G/DL (3.4-5.0); Calcium 9.6 MG/DL (8.5-10.1)
[2019-12-21] MEDS: DESITIN 4OZ/NYSTATIN 15 GRAM MIXTURE PASTE TOP SCH ×2 (08:56→20:17)
[2019-12-21] MEDS: predniSONE 10 MG TABLET PEG SCH (08:56)
[2019-12-21] MEDS: SERTRALINE 50 MG TABLET PEG SCH (08:56)
[2019-12-21] MEDS: ENOXAPARIN 40 MG/0.4 ML SYRINGE SUBCUT SCH (20:14)
[2019-12-22 05:04] LABS: Basophils # 0.1 10*3/uL (0.0-0.2); Basophils % 0.8 % (0.0-0.8); Eosinophils # 0.2 10*3/uL (0.0-0.87); Eosinophils % 1.7 % (0.00-10.9); Hematocrit 34.4 VOL% (42.0-52.0); Hemoglobin 11.3 GM/DL (14.0-18.0); Immature Granulocytes % 2.3 %; Immature Granulocytes Absolute 0.23 #; Lymphocytes # 3.8 10*3/uL (1.4-4.0); Lymphocytes % 37.5 % (21.2-54.2); Mean Corpuscular HGB Conc 32.8 GM/DL (32-36); Mean Platelet Volume 9.2 FL (9.6-12.0); Monocytes % 8.4 % (1.7-12.7); Neutrophils % 49.3 % (38.7-73.9); Platelet Count 348 T/CUMM (130-400); Red Cell Distribution Width 15.5 % (9.3-17.3)
[2019-12-22] MEDS: INSULIN LISPRO 100 UNIT/ML SUBCUT SCH ×4 (06:19→23:26)
[2019-12-22] MEDS: DESITIN 4OZ/NYSTATIN 15 GRAM MIXTURE PASTE TOP SCH ×2 (08:57→21:24)
[2019-12-22] MEDS: predniSONE 10 MG TABLET PEG SCH (08:57)
[2019-12-22] MEDS: SERTRALINE 50 MG TABLET PEG SCH (08:57)
[2019-12-22] MEDS: ENOXAPARIN 40 MG/0.4 ML SYRINGE SUBCUT SCH (21:22)
[2019-12-23] MEDS ORDERED: MORPHINE 4 MG/1 ML VIAL IV ONE (02:47)
[2019-12-23] MEDS: INSULIN LISPRO 100 UNIT/ML SUBCUT SCH ×3 (06:18→17:30)
[2019-12-23] MEDS: SERTRALINE 50 MG TABLET PEG SCH (09:18)
[2019-12-23] MEDS: predniSONE 10 MG TABLET PEG SCH (09:19)
[2019-12-23] MEDS: DESITIN 4OZ/NYSTATIN 15 GRAM MIXTURE PASTE TOP SCH ×2 (09:19→20:35)
[2019-12-23] MEDS: ENOXAPARIN 40 MG/0.4 ML SYRINGE SUBCUT SCH (20:33)
[2019-12-23] MEDS ORDERED: INSULIN GLARGINE 100 UNIT/ML SUBCUT SCH (21:00)
[2019-12-24] MEDS: INSULIN LISPRO 100 UNIT/ML SUBCUT SCH ×4 (01:27→17:20)
[2019-12-24 06:27] LABS: Basophils # 0.1 10*3/uL (0.0-0.2); Basophils % 0.9 % (0.0-0.8); Eosinophils # 0.1 10*3/uL (0.0-0.87); Hematocrit 33.4 VOL% (42.0-52.0); Hemoglobin 11.3 GM/DL (14.0-18.0); Immature Granulocytes % 1.9 %; Immature Granulocytes Absolute 0.22 #; Lymphocytes # 4.5 10*3/uL (1.4-4.0); Lymphocytes % 38.7 % (21.2-54.2); Mean Corpuscular HGB Conc 33.8 GM/DL (32-36); Mean Corpuscular Volume 91.8 FL (87-102); Mean Platelet Volume 9.1 FL (9.6-12.0); Monocytes % 8.8 % (1.7-12.7); Neutrophils % 48.7 % (38.7-73.9); Platelet Count 339 T/CUMM (130-400); Red Blood Count 3.64 MC/CUMM (3.8-5.5); Red Cell Distribution Width 15.3 % (9.3-17.3); White Blood Count 11.6 T/CUMM (4-12)
[2019-12-24 06:49] LABS: Calcium 9.5 MG/DL (8.5-10.1)
[2019-12-24 06:49] LABS: Hypochromasia 1+; Lymphocytes 33 % (20-55); Microcytosis Slight; Platelet Estimate Adequate; Segmented Neutrophils 53 % (50-85)
[2019-12-24 06:50] LABS: Total Cells Counted 100
[2019-12-24] MEDS: DESITIN 4OZ/NYSTATIN 15 GRAM MIXTURE PASTE TOP SCH ×2 (08:09→20:24)
[2019-12-24] MEDS: SERTRALINE 50 MG TABLET PEG SCH (08:10)
[2019-12-24] MEDS: predniSONE 10 MG TABLET PEG SCH (08:10)
[2019-12-24] MEDS: CLOPIDOGREL 75 MG TABLET PO SCH (12:50)
[2019-12-24] MEDS: INSULIN GLARGINE 100 UNIT/ML SUBCUT SCH (20:23)
[2019-12-24] MEDS: ENOXAPARIN 40 MG/0.4 ML SYRINGE SUBCUT SCH (20:23)
[2019-12-25] MEDS: INSULIN LISPRO 100 UNIT/ML SUBCUT SCH ×4 (01:35→18:57)
[2019-12-25] MEDS: CALCIUM CARBONATE CHEW 500 MG TABLET PO PRN ×2 (04:03→08:47)
[2019-12-25 04:58] LABS: Basophils # 0.1 10*3/uL (0.0-0.2); Basophils % 0.6 % (0.0-0.8); Eosinophils # 0.2 10*3/uL (0.0-0.87); Eosinophils % 1.2 % (0.00-10.9); Hematocrit 35.8 VOL% (42.0-52.0); Hemoglobin 12.1 GM/DL (14.0-18.0); Immature Granulocytes % 1.4 %; Immature Granulocytes Absolute 0.25 #; Lymphocytes # 7.4 10*3/uL (1.4-4.0); Lymphocytes % 40.3 % (21.2-54.2); Mean Corpuscular HGB Conc 33.8 GM/DL (32-36); Mean Corpuscular Volume 90.9 FL (87-102); Mean Platelet Volume 9.4 FL (9.6-12.0); Monocytes % 7.3 % (1.7-12.7); Neutrophils % 49.2 % (38.7-73.9); Platelet Count 356 T/CUMM (130-400); Red Blood Count 3.94 MC/CUMM (3.8-5.5); Red Cell Distribution Width 15.2 % (9.3-17.3); White Blood Count 18.3 T/CUMM (4-12)
[2019-12-25 05:17] LABS: Calcium 9.3 MG/DL (8.5-10.1); Osmolality,Calculated 271.2 MOS/KG (273-304)
[2019-12-25 05:26] LABS: Hypochromasia Slight; Microcytosis Slight; Platelet Estimate Normal
[2019-12-25] MEDS: predniSONE 10 MG TABLET PEG SCH (08:46)
[2019-12-25] MEDS: CLOPIDOGREL 75 MG TABLET PO SCH (08:47)
[2019-12-25] MEDS: SERTRALINE 50 MG TABLET PEG SCH (08:47)
[2019-12-25] MEDS: DESITIN 4OZ/NYSTATIN 15 GRAM MIXTURE PASTE TOP SCH ×2 (08:51→21:10)
[2019-12-25 15:30] LABS: Bilirubin,Urine Negative (Negative); Blood, Urine Negative (Negative); Glucose,Urine (UA) Negative (Negative); Hyaline Casts,Urine 1 /LPF (0-3); Ketones,Urine Negative (Negative); Mucus,Urine Occasional /LPF (Occasional); Nitrite,Urine Negative (Negative); Protein,Urine 30 MG/DL; RBC,Urine 2 /HPF (0-4); Urine Appearance CLEAR (Clear); Urine Color Yellow (Yellow); Urine Urobilinogen < 2.0 EU/DL (0.2-1.0); WBC,Urine 3 /HPF (0-6)
[2019-12-25] MEDS: cefTRIAXone 2,000 MG in SYRINGE 1 EACH IV SCH (16:26)
[2019-12-25] MEDS: ENOXAPARIN 40 MG/0.4 ML SYRINGE SUBCUT SCH (21:10)
[2019-12-25] MEDS: INSULIN GLARGINE 100 UNIT/ML SUBCUT SCH (21:10)
[2019-12-26] MEDS: INSULIN LISPRO 100 UNIT/ML SUBCUT SCH ×4 (02:50→17:59)
[2019-12-26 06:17] LABS: Basophils # 0.1 10*3/uL (0.0-0.2); Basophils % 0.3 % (0.0-0.8); Eosinophils # 0.2 10*3/uL (0.0-0.87); Eosinophils % 1.3 % (0.00-10.9); Hematocrit 33.3 VOL% (42.0-52.0); Immature Granulocytes % 0.7 %; Lymphocytes # 3.5 10*3/uL (1.4-4.0); Lymphocytes % 23.7 % (21.2-54.2); Mean Corpuscular Volume 94.1 FL (87-102); Mean Platelet Volume 9.7 FL (9.6-12.0); Monocytes % 7.7 % (1.7-12.7); Neutrophils % 66.3 % (38.7-73.9); Platelet Count 287 T/CUMM (130-400); Red Blood Count 3.54 MC/CUMM (3.8-5.5); Red Cell Distribution Width 15.3 % (9.3-17.3); White Blood Count 14.7 T/CUMM (4-12)
[2019-12-26 06:32] LABS: Calcium 9.3 MG/DL (8.5-10.1); Osmolality,Calculated 268.4 MOS/KG (273-304)
[2019-12-26] MEDS: CLOPIDOGREL 75 MG TABLET PO SCH (08:33)
[2019-12-26] MEDS: DESITIN 4OZ/NYSTATIN 15 GRAM MIXTURE PASTE TOP SCH ×2 (08:33→21:37)
[2019-12-26] MEDS: predniSONE 10 MG TABLET PEG SCH (08:33)
[2019-12-26] MEDS: SERTRALINE 50 MG TABLET PEG SCH (08:33)
[2019-12-26] MEDS: CALCIUM CARBONATE CHEW 500 MG TABLET PO PRN ×3 (10:27→19:28)
[2019-12-26] MEDS: cefTRIAXone 2,000 MG in SYRINGE 1 EACH IV SCH (21:24)
[2019-12-26] MEDS: ENOXAPARIN 40 MG/0.4 ML SYRINGE SUBCUT SCH (21:26)
[2019-12-26] MEDS: INSULIN GLARGINE 100 UNIT/ML SUBCUT SCH (21:26)
[2019-12-27] MEDS: INSULIN LISPRO 100 UNIT/ML SUBCUT SCH ×4 (00:19→18:29)
[2019-12-27] MEDS: CALCIUM CARBONATE CHEW 500 MG TABLET PO PRN (00:20)
[2019-12-27 04:52] LABS: Basophils # 0.1 10*3/uL (0.0-0.2); Basophils % 0.5 % (0.0-0.8); Eosinophils # 0.2 10*3/uL (0.0-0.87); Eosinophils % 1.1 % (0.00-10.9); Hematocrit 32.9 VOL% (42.0-52.0); Hemoglobin 11.1 GM/DL (14.0-18.0); Immature Granulocytes % 0.8 %; Lymphocytes # 3.9 10*3/uL (1.4-4.0); Lymphocytes % 29.8 % (21.2-54.2); Mean Corpuscular HGB Conc 33.7 GM/DL (32-36); Mean Corpuscular Volume 91.9 FL (87-102); Mean Platelet Volume 9.3 FL (9.6-12.0); Monocytes % 9.4 % (1.7-12.7); Neutrophils % 58.4 % (38.7-73.9); Platelet Count 282 T/CUMM (130-400); Red Blood Count 3.58 MC/CUMM (3.8-5.5); Red Cell Distribution Width 15.1 % (9.3-17.3); White Blood Count 13.1 T/CUMM (4-12)
[2019-12-27 05:12] LABS: Calcium 9.7 MG/DL (8.5-10.1); Osmolality,Calculated 269.2 MOS/KG (273-304)
[2019-12-27] MEDS: ALUMINUM/MAGNES/SIMETH MAX STR 30 ML UDCUP PO PRN ×3 (05:12→20:25)
[2019-12-27 05:22] LABS: Eosinophils 5 % (0-10); Hypochromasia 1+; Lymphocytes 27 % (20-55); Microcytosis 1+; Platelet Estimate Adequate; Segmented Neutrophils 65 % (50-85); Total Cells Counted 100
[2019-12-27 05:23] LABS: Ovalocytes Slight
[2019-12-27] MEDS: predniSONE 10 MG TABLET PEG SCH (09:09)
[2019-12-27] MEDS: CLOPIDOGREL 75 MG TABLET PO SCH (09:09)
[2019-12-27] MEDS: SERTRALINE 50 MG TABLET PEG SCH (09:10)
[2019-12-27] MEDS: DESITIN 4OZ/NYSTATIN 15 GRAM MIXTURE PASTE TOP SCH ×2 (09:10→20:15)
[2019-12-27] MEDS: INDOMETHACIN 25 MG CAPSULE PO SCH ×2 (12:05→20:15)
[2019-12-27] MEDS: cefTRIAXone 2,000 MG in SYRINGE 1 EACH IV SCH (20:14)
[2019-12-27] MEDS: INSULIN GLARGINE 100 UNIT/ML SUBCUT SCH (20:15)
[2019-12-27] MEDS: ENOXAPARIN 40 MG/0.4 ML SYRINGE SUBCUT SCH (20:15)
[2019-12-28] MEDS: INSULIN LISPRO 100 UNIT/ML SUBCUT SCH ×4 (00:25→17:10)
[2019-12-28] MEDS: ALUMINUM/MAGNES/SIMETH MAX STR 30 ML UDCUP PO PRN (05:54)
[2019-12-28 06:43] LABS: Basophils # 0.1 10*3/uL (0.0-0.2); Basophils % 0.5 % (0.0-0.8); Eosinophils # 0.2 10*3/uL (0.0-0.87); Eosinophils % 1.8 % (0.00-10.9); Hematocrit 30.9 VOL% (42.0-52.0); Hemoglobin 10.3 GM/DL (14.0-18.0); Immature Granulocytes % 0.7 %; Immature Granulocytes Absolute 0.09 #; Lymphocytes # 3.4 10*3/uL (1.4-4.0); Lymphocytes % 26.8 % (21.2-54.2); Mean Corpuscular HGB Conc 33.3 GM/DL (32-36); Mean Corpuscular Volume 93.6 FL (87-102); Mean Platelet Volume 9.3 FL (9.6-12.0); Monocytes % 7.5 % (1.7-12.7); Neutrophils % 62.7 % (38.7-73.9); Platelet Count 251 T/CUMM (130-400); Red Cell Distribution Width 14.9 % (9.3-17.3); White Blood Count 12.7 T/CUMM (4-12)
[2019-12-28 06:48] LABS: Calcium 9.4 MG/DL (8.5-10.1); Osmolality,Calculated 278.4 MOS/KG (273-304)
[2019-12-28] MEDS: CLOPIDOGREL 75 MG TABLET PO SCH (08:50)
[2019-12-28] MEDS: SERTRALINE 50 MG TABLET PEG SCH (08:50)
[2019-12-28] MEDS: predniSONE 10 MG TABLET PEG SCH (08:50)
[2019-12-28] MEDS: INDOMETHACIN 25 MG CAPSULE PO SCH ×2 (08:50→21:27)
[2019-12-28] MEDS: CALCIUM CARBONATE CHEW 500 MG TABLET PO PRN ×2 (08:55→22:41)
[2019-12-28 10:56] LABS: Lymphocytes 23 % (20-55); Metamyelocytes 1 %; Segmented Neutrophils 72 % (50-85); Total Cells Counted 100
[2019-12-28 10:57] LABS: Ovalocytes Few; Platelet Estimate Normal; Polychromasia Slight; Target Cells 1+
[2019-12-28] MEDS: DESITIN 4OZ/NYSTATIN 15 GRAM MIXTURE PASTE TOP SCH ×2 (13:36→21:28)
[2019-12-28] MEDS: INSULIN GLARGINE 100 UNIT/ML SUBCUT SCH (21:27)
[2019-12-28] MEDS: ENOXAPARIN 40 MG/0.4 ML SYRINGE SUBCUT SCH (21:27)
[2019-12-28] MEDS: cefTRIAXone 2,000 MG in SYRINGE 1 EACH IV SCH (21:28)
[2019-12-29] MEDS: INSULIN LISPRO 100 UNIT/ML SUBCUT SCH ×5 (01:47→23:44)
[2019-12-29 07:23] LABS: Basophils # 0.1 10*3/uL (0.0-0.2); Basophils % 0.6 % (0.0-0.8); Eosinophils # 0.3 10*3/uL (0.0-0.87); Eosinophils % 2.5 % (0.00-10.9); Hematocrit 22.4 VOL% (42.0-52.0); Hemoglobin 7.4 GM/DL (14.0-18.0); Immature Granulocytes % 0.6 %; Immature Granulocytes Absolute 0.08 #; Lymphocytes # 3.7 10*3/uL (1.4-4.0); Lymphocytes % 26.8 % (21.2-54.2); Mean Corpuscular Volume 94.5 FL (87-102); Mean Platelet Volume 10.8 FL (9.6-12.0); Monocytes % 9.3 % (1.7-12.7); Neutrophils % 60.2 % (38.7-73.9); Platelet Count 222 T/CUMM (130-400); Red Blood Count 2.37 MC/CUMM (3.8-5.5); Red Cell Distribution Width 14.9 % (9.3-17.3); White Blood Count 13.8 T/CUMM (4-12)
[2019-12-29 07:31] LABS: Calcium 9.1 MG/DL (8.5-10.1); Osmolality,Calculated 278.5 MOS/KG (273-304)
[2019-12-29] MEDS: DESITIN 4OZ/NYSTATIN 15 GRAM MIXTURE PASTE TOP SCH ×2 (08:11→20:22)
[2019-12-29] MEDS: INDOMETHACIN 25 MG CAPSULE PO SCH ×2 (08:11→20:20)
[2019-12-29] MEDS: predniSONE 10 MG TABLET PEG SCH (08:11)
[2019-12-29] MEDS: CLOPIDOGREL 75 MG TABLET PO SCH (08:11)
[2019-12-29] MEDS: SERTRALINE 50 MG TABLET PEG SCH (08:11)
[2019-12-29 09:41] LABS: Hematocrit 21.7 VOL% (42.0-52.0); Hemoglobin 7.2 GM/DL (14.0-18.0)
[2019-12-29] MEDS ORDERED: SODIUM CHLORIDE 0.9% 1,000 ML IV PRN (09:45)
[2019-12-29] MEDS: PANTOPRAZOLE 40 MG VIAL IV SCH ×2 (11:40→20:21)
[2019-12-29 12:06] LABS: Basophils # 0.1 10*3/uL (0.0-0.2); Basophils % 0.5 % (0.0-0.8); Eosinophils # 0.4 10*3/uL (0.0-0.87); Eosinophils % 2.5 % (0.00-10.9); Hemoglobin 7.5 GM/DL (14.0-18.0); Immature Granulocytes % 1.1 %; Immature Granulocytes Absolute 0.15 #; Lymphocytes # 3.7 10*3/uL (1.4-4.0); Mean Corpuscular HGB Conc 32.6 GM/DL (32-36); Mean Corpuscular Volume 96.2 FL (87-102); Mean Platelet Volume 9.5 FL (9.6-12.0); Monocytes % 10.2 % (1.7-12.7); Neutrophils % 59.7 % (38.7-73.9); Platelet Count 233 T/CUMM (130-400); Red Blood Count 2.39 MC/CUMM (3.8-5.5); Red Cell Distribution Width 14.7 % (9.3-17.3); White Blood Count 14.1 T/CUMM (4-12)
[2019-12-29 12:37] LABS: Folate 20.6 NG/ML (5.4-24.0); Vitamin B12 195 PG/ML (211-911)
[2019-12-29 13:11] LABS: Sedimentation Rate-Westergren 74 MM/HR (0-20)
[2019-12-29] MEDS: CYANOCOBALAMIN 500 MCG TABLET PO SCH (17:15)
[2019-12-29] MEDS: INSULIN GLARGINE 100 UNIT/ML SUBCUT SCH (20:20)
[2019-12-29] MEDS: cefTRIAXone 2,000 MG in SYRINGE 1 EACH IV SCH (20:21)
[2019-12-29 21:03] LABS: Hematocrit 28.2 VOL% (42.0-52.0)
[2019-12-29 21:06] LABS: Hemoglobin 9.5 GM/DL (14.0-18.0)
[2019-12-30] MEDS: INSULIN LISPRO 100 UNIT/ML SUBCUT SCH ×3 (06:57→18:27)
[2019-12-30 08:07] LABS: Basophils # 0.1 10*3/uL (0.0-0.2); Basophils % 0.4 % (0.0-0.8); Eosinophils # 0.4 10*3/uL (0.0-0.87); Eosinophils % 2.9 % (0.00-10.9); Hematocrit 29.2 VOL% (42.0-52.0); Hemoglobin 9.5 GM/DL (14.0-18.0); Immature Granulocytes % 1.1 %; Immature Granulocytes Absolute 0.15 #; Lymphocytes # 2.6 10*3/uL (1.4-4.0); Lymphocytes % 19.6 % (21.2-54.2); Mean Corpuscular HGB Conc 32.5 GM/DL (32-36); Mean Corpuscular Volume 93.3 FL (87-102); Mean Platelet Volume 9.5 FL (9.6-12.0); Monocytes % 8.5 % (1.7-12.7); Neutrophils % 67.5 % (38.7-73.9); Platelet Count 234 T/CUMM (130-400); Red Blood Count 3.13 MC/CUMM (3.8-5.5); Red Cell Distribution Width 14.6 % (9.3-17.3); White Blood Count 13.1 T/CUMM (4-12)
[2019-12-30 08:25] LABS: Calcium 9.1 MG/DL (8.5-10.1); Osmolality,Calculated 273.2 MOS/KG (273-304)
[2019-12-30] MEDS: SERTRALINE 50 MG TABLET PEG SCH (08:46)
[2019-12-30] MEDS: CLOPIDOGREL 75 MG TABLET PO SCH (08:46)
[2019-12-30] MEDS: predniSONE 10 MG TABLET PEG SCH (08:46)
[2019-12-30] MEDS: CYANOCOBALAMIN 500 MCG TABLET PO SCH (08:46)
[2019-12-30] MEDS: DESITIN 4OZ/NYSTATIN 15 GRAM MIXTURE PASTE TOP SCH ×2 (08:46→21:42)
[2019-12-30] MEDS: PANTOPRAZOLE 40 MG VIAL IV SCH ×2 (08:46→21:41)
[2019-12-30] MEDS: INDOMETHACIN 25 MG CAPSULE PO SCH (08:46)
[2019-12-30 09:13] LABS: Hemoglobin A1 (Alkaline) 97.5 % (96.5-98.5); Hemoglobin A2 (Alkaline) 2.5 % (1.5-3.5)
[2019-12-30] MEDS: POLYETHYLENE GLYCOL POWDER 17 GM PACK PO SCH (14:55)
[2019-12-30] MEDS: INSULIN GLARGINE 100 UNIT/ML SUBCUT SCH (21:42)
[2019-12-30] MEDS: cefTRIAXone 2,000 MG in SYRINGE 1 EACH IV SCH (23:38)
[2019-12-31] MEDS: INSULIN LISPRO 100 UNIT/ML SUBCUT SCH ×4 (01:09→18:00)
[2019-12-31 05:51] LABS: Basophils % 0.5 % (0.0-0.8); Eosinophils # 0.3 10*3/uL (0.0-0.87); Hematocrit 29.1 VOL% (42.0-52.0); Hemoglobin 9.8 GM/DL (14.0-18.0); Immature Granulocytes % 1.4 %; Immature Granulocytes Absolute 0.12 #; Lymphocytes # 3.1 10*3/uL (1.4-4.0); Lymphocytes % 36.2 % (21.2-54.2); Mean Corpuscular HGB Conc 33.7 GM/DL (32-36); Mean Platelet Volume 9.3 FL (9.6-12.0); Monocytes % 10.7 % (1.7-12.7); Neutrophils % 48.2 % (38.7-73.9); Platelet Count 252 T/CUMM (130-400); Red Blood Count 3.13 MC/CUMM (3.8-5.5); Red Cell Distribution Width 14.3 % (9.3-17.3); White Blood Count 8.5 T/CUMM (4-12)
[2019-12-31 06:13] LABS: Calcium 9.6 MG/DL (8.5-10.1); Osmolality,Calculated 271.1 MOS/KG (273-304)
[2019-12-31 06:14] LABS: Eosinophils 1 % (0-10); Hypochromasia 1+; Lymphocytes 29 % (20-55); Microcytosis 1+; Platelet Estimate Adequate; Segmented Neutrophils 61 % (50-85); Total Cells Counted 100
[2019-12-31] MEDS: PANTOPRAZOLE 40 MG VIAL IV SCH ×2 (08:01→22:20)
[2019-12-31] MEDS: CYANOCOBALAMIN 500 MCG TABLET PO SCH (08:01)
[2019-12-31] MEDS: predniSONE 10 MG TABLET PEG SCH (08:01)
[2019-12-31] MEDS: DESITIN 4OZ/NYSTATIN 15 GRAM MIXTURE PASTE TOP SCH ×2 (08:01→22:28)
[2019-12-31] MEDS: SERTRALINE 50 MG TABLET PEG SCH (08:01)
[2019-12-31] MEDS: POLYETHYLENE GLYCOL POWDER 17 GM PACK PO SCH (08:01)
[2019-12-31] MEDS: INSULIN GLARGINE 100 UNIT/ML SUBCUT SCH (22:20)
[2019-12-31] MEDS: cefTRIAXone 2,000 MG in SYRINGE 1 EACH IV SCH (22:23)
[2020-01-01] MEDS: INSULIN LISPRO 100 UNIT/ML SUBCUT SCH ×4 (01:42→18:30)
[2020-01-01 05:45] LABS: Basophils # 0.1 10*3/uL (0.0-0.2); Basophils % 0.7 % (0.0-0.8); Eosinophils # 0.2 10*3/uL (0.0-0.87); Eosinophils % 2.7 % (0.00-10.9); Hematocrit 27.6 VOL% (42.0-52.0); Hemoglobin 9.1 GM/DL (14.0-18.0); Immature Granulocytes % 1.4 %; Immature Granulocytes Absolute 0.11 #; Lymphocytes # 3.2 10*3/uL (1.4-4.0); Lymphocytes % 39.7 % (21.2-54.2); Mean Corpuscular Volume 93.9 FL (87-102); Mean Platelet Volume 9.4 FL (9.6-12.0); Monocytes % 10.6 % (1.7-12.7); Neutrophils % 44.9 % (38.7-73.9); Platelet Count 290 T/CUMM (130-400); Red Blood Count 2.94 MC/CUMM (3.8-5.5); Red Cell Distribution Width 14.2 % (9.3-17.3); White Blood Count 8.1 T/CUMM (4-12)
[2020-01-01 06:00] LABS: Osmolality,Calculated 274.7 MOS/KG (273-304)
[2020-01-01 06:08] LABS: Band Neutrophils 1 % (0-10); Eosinophils 5 % (0-10); Hypochromasia 1+; Lymphocytes 32 % (20-55); Microcytosis 1+; Platelet Estimate Adequate; Segmented Neutrophils 51 % (50-85); Total Cells Counted 100
[2020-01-01] MEDS ORDERED: LACTATED RINGERS 1,000 ML IV SCH (08:00)
[2020-01-01] MEDS ORDERED: propofoL 200 MG/20 ML VIAL IV ONE (09:00)
[2020-01-01] MEDS ORDERED: ETOMIDATE 20 MG/10 ML VIAL IV ONE (09:00)
[2020-01-01] MEDS ORDERED: MAGNESIUM SULF RIDER 4 GM in PREMIX 1 EACH IV ONE (09:00)
[2020-01-01] MEDS ORDERED: LIDOCAINE 2% 5 ML VIAL ONE (09:00)
[2020-01-01] MEDS: CYANOCOBALAMIN 500 MCG TABLET PO SCH (12:01)
[2020-01-01] MEDS: PANTOPRAZOLE 40 MG VIAL IV SCH (12:01)
[2020-01-01] MEDS: predniSONE 10 MG TABLET PEG SCH (12:02)
[2020-01-01] MEDS: POLYETHYLENE GLYCOL POWDER 17 GM PACK PO SCH (12:02)
[2020-01-01] MEDS: SERTRALINE 50 MG TABLET PEG SCH (12:02)
[2020-01-01] MEDS: DESITIN 4OZ/NYSTATIN 15 GRAM MIXTURE PASTE TOP SCH ×2 (12:03→22:16)
[2020-01-01] MEDS ORDERED: BISACODYL 5 MG TABLET PO ONE (15:00)
[2020-01-01] MEDS: METOCLOPRAMIDE 5 MG TABLET PO SCH ×2 (17:30→22:16)
[2020-01-01] MEDS ORDERED: POLYETHYLENE GLYCOL POWDER 255 GM BOTTLE PO ONE (18:00)
[2020-01-01] MEDS ORDERED: METOCLOPRAMIDE 5 MG TABLET PO SCH (18:00)
[2020-01-01] MEDS: INSULIN GLARGINE 100 UNIT/ML SUBCUT SCH (22:10)
[2020-01-01] MEDS: PANTOPRAZOLE 40 MG TABLET PO SCH (22:16)
[2020-01-02] MEDS: INSULIN LISPRO 100 UNIT/ML SUBCUT SCH ×4 (01:08→19:17)
[2020-01-02 05:40] LABS: Basophils # 0.1 10*3/uL (0.0-0.2); Basophils % 0.9 % (0.0-0.8); Eosinophils # 0.3 10*3/uL (0.0-0.87); Eosinophils % 2.9 % (0.00-10.9); Hematocrit 31.7 VOL% (42.0-52.0); Hemoglobin 10.6 GM/DL (14.0-18.0); Immature Granulocytes % 1.4 %; Immature Granulocytes Absolute 0.13 #; Lymphocytes # 3.5 10*3/uL (1.4-4.0); Lymphocytes % 37.4 % (21.2-54.2); Mean Corpuscular HGB Conc 33.4 GM/DL (32-36); Mean Corpuscular Volume 93.8 FL (87-102); Mean Platelet Volume 8.9 FL (9.6-12.0); Monocytes % 9.8 % (1.7-12.7); Neutrophils % 47.6 % (38.7-73.9); Platelet Count 328 T/CUMM (130-400); Red Blood Count 3.38 MC/CUMM (3.8-5.5); Red Cell Distribution Width 14.4 % (9.3-17.3); White Blood Count 9.2 T/CUMM (4-12)
[2020-01-02 05:46] LABS: Calcium 9.6 MG/DL (8.5-10.1); Osmolality,Calculated 261.7 MOS/KG (273-304)
[2020-01-02 05:48] LABS: PT Patient Result 10.4 SECS (9.8-11.9)
[2020-01-02] MEDS: METOCLOPRAMIDE 5 MG TABLET PO SCH ×4 (12:13→20:44)
[2020-01-02] MEDS: predniSONE 10 MG TABLET PEG SCH (12:13)
[2020-01-02] MEDS: CYANOCOBALAMIN 500 MCG TABLET PO SCH (12:13)
[2020-01-02] MEDS: PANTOPRAZOLE 40 MG TABLET PO SCH ×2 (12:13→20:44)
[2020-01-02] MEDS: SERTRALINE 50 MG TABLET PEG SCH (12:13)
[2020-01-02] MEDS: POLYETHYLENE GLYCOL POWDER 17 GM PACK PO SCH (12:13)
[2020-01-02] MEDS: DESITIN 4OZ/NYSTATIN 15 GRAM MIXTURE PASTE TOP SCH ×2 (12:14→20:44)
[2020-01-02] MEDS ORDERED: POLYETHYLENE GLYCOL POWDER 255 GM BOTTLE PO ONE (12:30)
[2020-01-02] MEDS: TRIAMCINOLONE 0.025% CREAM 15 GM TUBE TOP SCH (20:43)
[2020-01-02] MEDS: INSULIN GLARGINE 100 UNIT/ML SUBCUT SCH (20:44)
[2020-01-03] MEDS: INSULIN LISPRO 100 UNIT/ML SUBCUT SCH ×3 (00:01→12:35)
[2020-01-03 04:46] LABS: Basophils # 0.1 10*3/uL (0.0-0.2); Basophils % 0.5 % (0.0-0.8); Eosinophils # 0.2 10*3/uL (0.0-0.87); Eosinophils % 1.8 % (0.00-10.9); Hematocrit 29.5 VOL% (42.0-52.0); Immature Granulocytes % 1.4 %; Immature Granulocytes Absolute 0.13 #; Lymphocytes # 2.8 10*3/uL (1.4-4.0); Lymphocytes % 30.3 % (21.2-54.2); Mean Corpuscular HGB Conc 33.9 GM/DL (32-36); Mean Corpuscular Volume 91.9 FL (87-102); Monocytes % 11.8 % (1.7-12.7); Neutrophils % 54.2 % (38.7-73.9); Platelet Count 318 T/CUMM (130-400); Red Blood Count 3.21 MC/CUMM (3.8-5.5); Red Cell Distribution Width 14.3 % (9.3-17.3); White Blood Count 9.2 T/CUMM (4-12)
[2020-01-03 05:04] LABS: Calcium 9.4 MG/DL (8.5-10.1); Osmolality,Calculated 273.8 MOS/KG (273-304)
[2020-01-03] MEDS ORDERED: LACTATED RINGERS 1,000 ML IV SCH (08:00)
[2020-01-03] MEDS ORDERED: MAGNESIUM SULF RIDER 4 GM in PREMIX 1 EACH IV ONE (08:00)
[2020-01-03] MEDS: METOCLOPRAMIDE 5 MG TABLET PO SCH ×2 (08:56→12:58)
[2020-01-03] MEDS: POLYETHYLENE GLYCOL POWDER 17 GM PACK PO SCH (08:57)
[2020-01-03] MEDS ORDERED: propofoL 200 MG/20 ML VIAL IV ONE (10:00)
[2020-01-03] MEDS ORDERED: ETOMIDATE 20 MG/10 ML VIAL IV ONE (10:00)
[2020-01-03 12:02] VITALS: BP 147/95
[2020-01-03] MEDS: CYANOCOBALAMIN 500 MCG TABLET PO SCH (12:58)
[2020-01-03] MEDS: predniSONE 10 MG TABLET PEG SCH (12:58)
[2020-01-03] MEDS: TRIAMCINOLONE 0.025% CREAM 15 GM TUBE TOP SCH (12:59)
[2020-01-03] MEDS: DESITIN 4OZ/NYSTATIN 15 GRAM MIXTURE PASTE TOP SCH (12:59)
[2020-01-03] MEDS: SERTRALINE 50 MG TABLET PEG SCH (12:59)
[2020-01-03] MEDS: PANTOPRAZOLE 40 MG TABLET PO SCH (12:59)
== END 2020-01-03 14:25 | DRG 872 ==
LOC: N.ED 17:01 → SUATTDRO 22:02 → N.EDINP 22:02 → N.5E 12-16 00:29
PROVIDERS: ADMIT Internal Medicine Geriatric Medicine; ATTEND Internal Medicine